=== PATIENT | female | born 1995 | race Caucasian/White ===

== ENCOUNTER 2018-12-20 07:33 | Day surgery (SDC) | payer OTHER ==
[2018-12-20] MEDS: SOD CHLORIDE 0.9% 1,000 ML IV (08:15)
[2018-12-20] MEDS ORDERED: CEFAZOLIN 2 GM/50 ML (PMX) 50 ML IVPB (08:30)
[2018-12-20] MEDS ORDERED: PROPOFOL 200 MG INJ (10:36)
[2018-12-20] MEDS ORDERED: ROCURONIUM 50 MG INJ (10:36)
[2018-12-20] MEDS ORDERED: LIDOCAINE 2% (SDV) 5 ML INJ (10:36)
[2018-12-20] MEDS ORDERED: PROPOFOL 100 ML (10:36)
[2018-12-20] MEDS ORDERED: CEFAZOLIN 1 GM INJ (10:44)
[2018-12-20] MEDS ORDERED: DEXAMETHASONE 4 MG/ML 5 ML INJ (10:44)
[2018-12-20] MEDS ORDERED: ONDANSETRON 4 MG INJ (10:44)
[2018-12-20] MEDS ORDERED: NEOSTIGMINE 3 MG/3 ML SYRINGE (11:17)
[2018-12-20] MEDS ORDERED: GLYCOPYRROLATE 0.4 MG INJ (11:17)
[2018-12-20] MEDS: BUPIVACAINE 0.25% (MPF) 30 ML INJ (11:35)
[2018-12-20] MEDS ORDERED: HYDROmorphONE 1 MG/5 ML IV SYRINGE IV ×2 (11:37→12:00)
[2018-12-20] MEDS: HYDROmorphONE 1 MG/5 ML IV SYRINGE IV ×2 (11:43→11:49)
[2018-12-20] MEDS: FENTAnyl 50 MCG/ML VIAL IV ×3 (11:51→12:35)
[2018-12-20] MEDS ORDERED: MEPERIDINE 25 MG INJ IV (12:00)
[2018-12-20] MEDS ORDERED: DIPHENHYDRAMINE 50 MG INJ IV (12:00)
[2018-12-20] MEDS ORDERED: FENTAnyl 50 MCG/ML VIAL IV (12:00)
[2018-12-20] MEDS ORDERED: ONDANSETRON 4 MG INJ IV (12:00)
[2018-12-20] MEDS ORDERED: hydrALAzine 20 MG INJ IV (12:00)
[2018-12-20] MEDS ORDERED: LABETALOL HCL 20MG INJ IV (12:00)
[2018-12-20] MEDS ORDERED: METOCLOPRAMIDE 10 MG INJ IV (12:00)
[2018-12-20] MEDS ORDERED: ALBUTEROL 0.083% (NEB) 2.5 MG/3 ML AMP HHN (12:00)
[2018-12-20] MEDS ORDERED: EPHEDrine 25 MG/5 ML SYG IV (12:00)
[2018-12-20] MEDS: HYDROCODONE/APAP (5/325) TAB PO (12:15)
[2018-12-20] MEDS: KETOROLAC 30 MG INJ IV (13:36)
== END 2018-12-20 13:54 | disposition home or self-care (01) ==
LOC: SDS 07:33
DX: K80.10 Calculus of gallbladder with chronic cholecystitis without obstruction (principal)
CPT/HCPCS: 47562; 84703; 88304

== ENCOUNTER 2018-12-21 12:15 | Inpatient (IN) | payer OTHER ==
[2018-12-21 13:37] LABS: ADD MAN DIFF? NO
[2018-12-21 13:38] LABS: WHITE BLOOD COUNT 21.2 10^3/ul (4.8-10.8)
[2018-12-21 13:38] LABS: BASOPHILS % 0.2 % (0.0-2.0); HEMOGLOBIN 13.7 g/dl (12.0-16.0); LYMPHOCYTES # 2.2 10^3/ul (0.8-2.9); LYMPHOCYTES % 10.5 % (15.0-51.0); MEAN CORPUSCULAR HEMOGLOBIN 27.4 pg (29.0-33.0); MEAN CORPUSCULAR HGB CONC 32.6 g/dl (32.0-37.0); MEAN PLATELET VOLUME 9.4 fl (7.4-10.4); MONOCYTE # 1.1 10^3/ul (0.3-0.9); NEUTROPHIL # 17.7 10^3/ul (1.6-7.5); NEUTROPHILS % 83.8 % (39.0-77.0); PLATELET COUNT 330 10^3/UL (140-415); RED CELL DISTRIBUTION WIDTH 13.1 % (11.5-14.5)
[2018-12-21] MEDS: ONDANSETRON 4 MG INJ IV (13:38)
[2018-12-21] MEDS: SOD CHLORIDE 0.9% 1,000 ML IV (13:38)
[2018-12-21] MEDS: HYDROmorphONE 1 MG/ML SYG IV ×2 (13:38→15:16)
[2018-12-21 13:48] LABS: ALANINE AMINOTRANSFERASE 131 IU/L (13-69); ALBUMIN 4.3 g/dl (3.3-4.9); ALBUMIN/GLOBULIN RATIO 1.19; ALKALINE PHOSPHATASE 79 IU/L (42-121); ANION GAP 12 (5-13); ASPARTATE AMINO TRANSFERASE 110 IU/L (15-46); BILIRUBIN,INDIRECT 0.7 mg/dl (0-1.1); BILIRUBIN,TOTAL 0.7 mg/dl (0.2-1.3); BLOOD UREA NITROGEN 10 mg/dl (7-20); CALCIUM 9.1 mg/dl (8.4-10.2); CARBON DIOXIDE 24 mmol/L (21-31); CHLORIDE 103 mmol/L (97-110); CREATININE 0.57 mg/dl (0.44-1.00); Estimated GFR > 60 mL/min (>60); GLUCOSE 125 mg/dl (70-220); LIPASE 97 U/L (23-300); POTASSIUM 3.8 mmol/L (3.5-5.1); SODIUM 139 mmol/L (135-144); TOTAL PROTEIN 7.9 g/dl (6.1-8.1)
[2018-12-21] MEDS: SOD CHLORIDE 0.9% 100 ML (14:35)
[2018-12-21] MEDS: IOHEXOL 300MG/ML 150 ML BTL (14:35)
[2018-12-21] MEDS: LORAZEPAM 2 MG INJ IV (14:37)
[2018-12-21] MEDS: CIPROFLOXACIN 400MG/D5W 200 ML IVPB (17:48)
[2018-12-21] MEDS ORDERED: ACETAMINOPHEN 325 MG TAB PO (18:30)
[2018-12-21] MEDS ORDERED: ONDANSETRON 4 MG INJ IV (18:30)
[2018-12-21] MEDS: metroNIDAZOLE 500 MG/NS (PMX) 100 ML IVPB (19:31)
[2018-12-21] MEDS: HYDROmorphONE 2 MG/ML SYG IV (19:47)
[2018-12-21] MEDS ORDERED: morphine 4 MG/ML VIAL IV (22:30)
[2018-12-21] MEDS: HYDROmorphONE 0.5 MG/0.5 ML SYG IV (23:48)
[2018-12-21] MEDS: PIPER-TAZO 3.375 GM IV (PMX) 100 ML IVPB (23:54)
[2018-12-22] MEDS: HYDROCODONE/APAP (5/325) TAB PO (01:00)
[2018-12-22] MEDS: ONDANSETRON 4 MG INJ IV (01:20)
[2018-12-22 06:10] LABS: ADD MAN DIFF? NO
[2018-12-22] MEDS: HYDROmorphONE 0.5 MG/0.5 ML SYG IV ×4 (06:11→23:34)
[2018-12-22] MEDS: PIPER-TAZO 3.375 GM IV (PMX) 100 ML IVPB ×4 (06:11→23:30)
[2018-12-22 06:12] LABS: BASOPHILS % 0.2 % (0.0-2.0); HEMATOCRIT 39.9 % (37.0-47.0); HEMOGLOBIN 12.9 g/dl (12.0-16.0); LYMPHOCYTES # 1.9 10^3/ul (0.8-2.9); LYMPHOCYTES % 11.5 % (15.0-51.0); MEAN CORPUSCULAR HEMOGLOBIN 27.3 pg (29.0-33.0); MEAN CORPUSCULAR HGB CONC 32.3 g/dl (32.0-37.0); MEAN CORPUSCULAR VOLUME 84.4 fl (82.0-101.0); MEAN PLATELET VOLUME 9.6 fl (7.4-10.4); MONOCYTE # 1.3 10^3/ul (0.3-0.9); MONOCYTES % 7.8 % (0.0-11.0); NEUTROPHIL # 13.3 10^3/ul (1.6-7.5); PLATELET COUNT 288 10^3/UL (140-415); RED BLOOD COUNT 4.73 10^6/ul (4.20-5.40); RED CELL DISTRIBUTION WIDTH 13.4 % (11.5-14.5)
[2018-12-22 06:12] LABS: WHITE BLOOD COUNT 16.7 10^3/ul (4.8-10.8)
[2018-12-22 06:54] LABS: ALANINE AMINOTRANSFERASE 143 IU/L (13-69); ALBUMIN 3.5 g/dl (3.3-4.9); ALBUMIN/GLOBULIN RATIO 1.12; ALKALINE PHOSPHATASE 69 IU/L (42-121); AMYLASE 81 U/L (11-123); ANION GAP 6 (5-13); ASPARTATE AMINO TRANSFERASE 109 IU/L (15-46); BILIRUBIN,INDIRECT 0.7 mg/dl (0-1.1); BILIRUBIN,TOTAL 0.7 mg/dl (0.2-1.3); BLOOD UREA NITROGEN 7 mg/dl (7-20); CALCIUM 8.6 mg/dl (8.4-10.2); CARBON DIOXIDE 28 mmol/L (21-31); CHLORIDE 103 mmol/L (97-110); CREATININE 0.49 mg/dl (0.44-1.00); Estimated GFR > 60 mL/min (>60); GLUCOSE 105 mg/dl (70-220); LIPASE 103 U/L (23-300); POTASSIUM 4.2 mmol/L (3.5-5.1); SODIUM 137 mmol/L (135-144); TOTAL PROTEIN 6.6 g/dl (6.1-8.1)
[2018-12-22] MEDS: ACETAMINOPHEN 500 MG TAB PO (17:43)
[2018-12-22] MEDS: SOD CHLORIDE 0.9% 1,000 ML IV (20:57)
[2018-12-22] MEDS: ENOXAPARIN 100 MG/ML SYG SC (20:58)
[2018-12-22] MEDS: IOHEXOL 100 ML (21:08)
[2018-12-22] MEDS: SOD CHLORIDE 0.9% 100 ML (21:08)
[2018-12-23] MEDS: HYDROmorphONE 0.5 MG/0.5 ML SYG IV ×3 (03:53→10:02)
[2018-12-23] MEDS: PIPER-TAZO 3.375 GM IV (PMX) 100 ML IVPB ×4 (05:33→23:44)
[2018-12-23] MEDS: ACETAMINOPHEN 500 MG TAB PO ×2 (05:36→17:27)
[2018-12-23 06:45] LABS: ADD MAN DIFF? NO
[2018-12-23 06:51] LABS: BASOPHILS % 0.3 % (0.0-2.0); EOSINOPHILS # 0.1 10^3/ul (0.0-0.5); EOSINOPHILS % 0.6 % (0.0-7.0); HEMATOCRIT 37.7 % (37.0-47.0); HEMOGLOBIN 12.1 g/dl (12.0-16.0); LYMPHOCYTES # 2.5 10^3/ul (0.8-2.9); LYMPHOCYTES % 19.6 % (15.0-51.0); MEAN CORPUSCULAR HGB CONC 32.1 g/dl (32.0-37.0); MEAN CORPUSCULAR VOLUME 84.2 fl (82.0-101.0); MEAN PLATELET VOLUME 9.4 fl (7.4-10.4); NEUTROPHILS % 71.1 % (39.0-77.0); PLATELET COUNT 257 10^3/UL (140-415); RED BLOOD COUNT 4.48 10^6/ul (4.20-5.40); RED CELL DISTRIBUTION WIDTH 13.5 % (11.5-14.5)
[2018-12-23 06:51] LABS: WHITE BLOOD COUNT 12.7 10^3/ul (4.8-10.8)
[2018-12-23 07:19] LABS: ALANINE AMINOTRANSFERASE 222 IU/L (13-69); ALBUMIN 3.3 g/dl (3.3-4.9); ALBUMIN/GLOBULIN RATIO 1.06; ALKALINE PHOSPHATASE 89 IU/L (42-121); ANION GAP 8 (5-13); ASPARTATE AMINO TRANSFERASE 152 IU/L (15-46); BLOOD UREA NITROGEN 6 mg/dl (7-20); CALCIUM 8.2 mg/dl (8.4-10.2); CARBON DIOXIDE 26 mmol/L (21-31); CHLORIDE 103 mmol/L (97-110); CREATININE 0.59 mg/dl (0.44-1.00); Estimated GFR > 60 mL/min (>60); GLUCOSE 100 mg/dl (70-220); POTASSIUM 3.4 mmol/L (3.5-5.1); SODIUM 137 mmol/L (135-144); TOTAL PROTEIN 6.4 g/dl (6.1-8.1)
[2018-12-23] MEDS: ONDANSETRON 4 MG INJ IV (09:23)
[2018-12-23] MEDS: SOD CHLORIDE 0.9% 1,000 ML IV ×3 (10:20→23:40)
[2018-12-23] MEDS: PANTOPRAZOLE (EC) 40 MG TAB PO (10:32)
[2018-12-23] MEDS: MINERAL OIL 30ML CUP PO ×2 (11:42→20:39)
[2018-12-23] MEDS: BISACODYL 10 MG SUPP PR ×2 (11:43→14:37)
[2018-12-23] MEDS ORDERED: NA PHOSPHATE/BIPHOS 133 ML ENEMA PR (15:30)
[2018-12-24] MEDS: PANTOPRAZOLE (EC) 40 MG TAB PO (06:12)
[2018-12-24] MEDS: PIPER-TAZO 3.375 GM IV (PMX) 100 ML IVPB ×4 (06:12→23:13)
[2018-12-24 07:11] LABS: ADD MAN DIFF? NO
[2018-12-24 07:12] LABS: WHITE BLOOD COUNT 11.7 10^3/ul (4.8-10.8)
[2018-12-24 07:12] LABS: BASOPHILS % 0.3 % (0.0-2.0); EOSINOPHILS # 0.2 10^3/ul (0.0-0.5); EOSINOPHILS % 1.5 % (0.0-7.0); HEMATOCRIT 36.8 % (37.0-47.0); HEMOGLOBIN 11.9 g/dl (12.0-16.0); LYMPHOCYTES # 2.7 10^3/ul (0.8-2.9); LYMPHOCYTES % 23.2 % (15.0-51.0); MEAN CORPUSCULAR HEMOGLOBIN 27.5 pg (29.0-33.0); MEAN CORPUSCULAR HGB CONC 32.3 g/dl (32.0-37.0); MEAN CORPUSCULAR VOLUME 85.2 fl (82.0-101.0); MEAN PLATELET VOLUME 9.5 fl (7.4-10.4); MONOCYTE # 0.8 10^3/ul (0.3-0.9); NEUTROPHIL # 7.9 10^3/ul (1.6-7.5); NEUTROPHILS % 67.7 % (39.0-77.0); PLATELET COUNT 281 10^3/UL (140-415); RED BLOOD COUNT 4.32 10^6/ul (4.20-5.40); RED CELL DISTRIBUTION WIDTH 13.2 % (11.5-14.5)
[2018-12-24 07:36] LABS: ALANINE AMINOTRANSFERASE 229 IU/L (13-69); ALBUMIN 2.9 g/dl (3.3-4.9); ALBUMIN/GLOBULIN RATIO 0.87; ALKALINE PHOSPHATASE 89 IU/L (42-121); ANION GAP 4 (5-13); ASPARTATE AMINO TRANSFERASE 107 IU/L (15-46); BILIRUBIN,INDIRECT 0.6 mg/dl (0-1.1); BILIRUBIN,TOTAL 0.6 mg/dl (0.2-1.3); BLOOD UREA NITROGEN 6 mg/dl (7-20); CALCIUM 8.6 mg/dl (8.4-10.2); CARBON DIOXIDE 30 mmol/L (21-31); CHLORIDE 106 mmol/L (97-110); CREATININE 0.59 mg/dl (0.44-1.00); Estimated GFR > 60 mL/min (>60); GLUCOSE 96 mg/dl (70-220); POTASSIUM 3.7 mmol/L (3.5-5.1); SODIUM 140 mmol/L (135-144); TOTAL PROTEIN 6.2 g/dl (6.1-8.1)
[2018-12-24] MEDS: MINERAL OIL 30ML CUP PO ×2 (08:01→20:02)
[2018-12-24] MEDS: SOD CHLORIDE 0.9% 1,000 ML IV (11:37)
[2018-12-24] MEDS: ACETAMINOPHEN 500 MG TAB PO (22:46)
[2018-12-24] MEDS: CALCIUM CARBONATE 500 MG CHEW TAB PO (23:13)
[2018-12-25] MEDS: HYDROmorphONE 1 MG/ML SYG IV ×3 (01:42→12:50)
[2018-12-25] MEDS: ONDANSETRON 4 MG INJ IV (01:42)
[2018-12-25] MEDS: SOD CHLORIDE 0.9% 1,000 ML IV (01:47)
[2018-12-25] MEDS: PIPER-TAZO 3.375 GM IV (PMX) 100 ML IVPB ×2 (06:30→11:19)
[2018-12-25] MEDS: PANTOPRAZOLE (EC) 40 MG TAB PO (06:30)
[2018-12-25 07:04] LABS: ALANINE AMINOTRANSFERASE 166 IU/L (13-69); ALBUMIN 3.1 g/dl (3.3-4.9); ALKALINE PHOSPHATASE 80 IU/L (42-121); ANION GAP 5 (5-13); ASPARTATE AMINO TRANSFERASE 53 IU/L (15-46); BILIRUBIN,INDIRECT 0.3 mg/dl (0-1.1); BILIRUBIN,TOTAL 0.3 mg/dl (0.2-1.3); BLOOD UREA NITROGEN 7 mg/dl (7-20); CALCIUM 8.5 mg/dl (8.4-10.2); CARBON DIOXIDE 27 mmol/L (21-31); CHLORIDE 106 mmol/L (97-110); CREATININE 0.49 mg/dl (0.44-1.00); Estimated GFR > 60 mL/min (>60); GLUCOSE 126 mg/dl (70-220); POTASSIUM 3.6 mmol/L (3.5-5.1); SODIUM 138 mmol/L (135-144); TOTAL PROTEIN 6.2 g/dl (6.1-8.1)
[2018-12-25] MEDS: MINERAL OIL 30ML CUP PO (08:32)
[2018-12-25] MEDS: ACETAMINOPHEN 500 MG TAB PO (09:02)
[2018-12-25] MEDS: morphine 2 MG INJ IV (11:19)
== END 2018-12-25 14:28 | disposition home or self-care (01) | DRG 948 ==
LOC: E/R 12:15 → TEL 12-22 22:02 → PP2 18:24
DX: G89.18 Other acute postprocedural pain (principal); D72.829 Elevated white blood cell count, unspecified; K59.00 Constipation, unspecified; R74.8 Abnormal levels of other serum enzymes; E66.9 Obesity, unspecified; F17.200 Nicotine dependence, unspecified, uncomplicated; Z90.49 Acquired absence of other specified parts of digestive tract
CPT/HCPCS: 71275; 74177; 74181; 80053; 82150; 83690; 84703; 85025; 96365; 96375; 96376; 99285-25